=== PATIENT | female | born 1955 | race Caucasian/White ===

== ENCOUNTER 2018-04-03 18:01 | Emergency (ER) | payer OTHER ==
[2018-04-03 18:07] VITALS: BP 143/67; PULSE 79; RESP 18; TEMP 99.3
--- NOTE | 2018-04-03 18:21 | ED ---
Upper Extremity HPI - General Chief Complaint: Extremity Injury, Upper Stated Complaint: Possible broken arm Time Seen by Provider: 04/03/18 18:09 Source: patient Mode of arrival: ambulatory Limitations: no limitations - History of Present Illness Initial Comments: This is a pleasant 62-year-old female who presents to the emergency department complaining of left wrist pain. Patient states that she fell in her garage on Thursday when she tripped over a carpet roll. Complaint: Injury to:: left, wrist Onset/Timin (Fell in garage, tripped over a roll of carpet) -: days(s) Other Extremity Injury: Wrist: Left Other Injuries: none Handedness: right Place: home Improves With: immobilization, rest Worsens With: movement of extremity Context: injury Associated Symptoms: denies other symptoms - Related Data Allergies Allergy/AdvReac Type Severity Reaction Status Date / Time No Known Allergies Allergy Verified 04/03/18 18:07 Review of Systems ROS Statement: Those systems with pertinent positive or pertinent negative responses have been documented in the HPI. ROS Other: All systems not noted in ROS Statement are negative. Past Medical History Past Medical History: No Reported History Additional Past Medical History / Comment(s): depression History of Any Multi-Drug Resistant Organisms: None Reported Past Surgical History: Orthopedic Surgery Additional Past Surgical History / Comment(s): patellar surg Past Psychological History: Depression Smoking Status: Never smoker Past Alcohol Use History: Occasional Past Drug Use History: None Reported General Exam - General Exam Comments Initial Comments: Well-developed, well-nourished female in no acute distress. Presents with Baldemar wrap on left wrist and forearm Limitations: no limitations Head exam: Present: atraumatic, normocephalic, normal inspection Eye exam: Present: normal appearance, EOMI. Absent: scleral icterus, conjunctival injection, periorbital swelling Neck exam: Present: normal inspection Respiratory exam: Absent: respiratory distress Left Shoulder Exam: Present: normal inspection, full ROM Upper Arm exam: Present: normal inspection. Absent: tenderness Elbow exam: Present: normal inspection, full ROM. Absent: tenderness, swelling Forearm Wrist exam: Present: tenderness (Dorsum of left wrist), swelling, ecchymosis. Absent: normal inspection, full ROM, laceration, deformity, crepitus, dislocation, erythema Hand Wrist exam: Present: tenderness, swelling, ecchymosis. Absent: normal inspection, full ROM, abrasion, laceration, deformity, crepitus Vascular: Present: normal capillary refill. Absent: vascular compromise, Pallo Back exam: Present: normal inspection, full ROM Neurological exam: Present: alert, oriented X3, CN II-XII intact. Absent: motor sensory deficit Psychiatric exam: Present: normal affect, normal mood Skin exam: Present: warm, dry, intact, normal color. Absent: rash Course Vital Signs 04/03/18 18:04 Temperature 99.3 F Pulse Rate 79 Respiratory 18 Rate Blood Pressure 143/67 O2 Sat by Pulse 98 Oximetry Procedures - Orthopedic Splinting/Casting Injury #1 Side: left Upper Extremity Injury Location: long arm, wrist Upper Extremity Immobilizer: wrist splint (Sling applied) Additional Comments: Distal neurovascular status intact both pre-and post-application. Medical Decision Making - Medical Decision Making Patient has an intra-articular fracture involving the distal left radius. There is also on her styloid fracture. There is some displacement with minimal angulation. Patient placed in a sugar tong splint and sling. Patient given follow-up instructions for orthopedics. Patient given follow-up instructions for splint care. Return and follow-up parameters discussed. Disposition Clinical Impression: Closed fracture of distal end of left radius with ulna Disposition: HOME SELF-CARE Condition: Good Instructions: Wrist Fracture in Adults (ED), Splint Care (ED) Additional Instructions: Return to the ER at once if the symptoms worsen or problems or difficulties arise. Wear the splint and sling as directed. Follow-up with orthopedics as directed. Is patient prescribed a controlled substance at d/c from ED?: No Referrals: Kwaku Kovacs MD [Medical Doctor] - 04/06/18 Time of Disposition: 19:05
--- NOTE | 2018-04-03 18:37 | XR ---
EXAMINATION TYPE: XR wrist complete LT DATE OF EXAM: 04/03/2018 COMPARISON: NONE HISTORY: Pain TECHNIQUE: Four views submitted. FINDINGS: There is an impacted fracture distal radius extending to the articular surface. Tiny avulsion fractur e chip fracture off the ulnar styloid also suspected. IMPRESSION: 1. Impacted intra-articular fracture distal radius with displacement.
== END 2018-04-03 19:12 | disposition home or self-care (01) ==
LOC: EC 18:01
DX: S52.512A Displaced fracture of left radial styloid process, initial encounter for closed fracture (principal); S52.612A Displaced fracture of left ulna styloid process, initial encounter for closed fracture; W01.0XXA Fall on same level from slipping, tripping and stumbling without subsequent striking against object, initial encounter; Y92.015 Private garage of single-family (private) house as the place of occurrence of the external cause
CPT/HCPCS: 29105; 99283